=== PATIENT | female | born 1975 | race Two or more races ===

== ENCOUNTER → 2019-08-09 | Outpatient (CLI) | payer OTHER ==
--- NOTE | 2019-08-09 11:48 | RAD ---
UPPER EXT JOINT WO CONT LEFT dated 08/09/2019 10:30 AM Indication: Chronic left shoulder pain , limited range of motion .. Comparison: No comparison is available. Technique: Routine multiplanar multisequence imaging performed. . Findings: There is intermediate T2 signal within the supraspinatus and infraspinatus portions of the rotator cuff. Articular surface partial tearing of the anterior supraspinatus footplate extends about 60-70% thickness there is mild retraction of undersurface fibers. There is also probable articular surface partial tearing of the subscapularis with moderate to severe thinning of the cuff substance. No definite full-thickness tear or cuff retraction. Mild hypertrophic change of the AC joint. Mild undersurface spurring of the distal clavicle and acromion. Trace amount of subacromial/subdeltoid bursal fluid. Acromion type II morphology. Mild increased signal within the substance of the long head biceps tendon proximally. Extra articular portion courses within the bicipital groove. Biceps anchor intact. Glenoid labrum is grossly intact. No apparent labral tear or para labral cyst. No glenohumeral joint effusion or loose body. IMPRESSION: 1. Moderate rotator cuff tendinopathy with moderate grade articular surface partial tear of the supraspinatus-subscapularis junction. No definite full-thickness tear or cuff retraction. 2. Mild AC joint arthropathy with undersurface spurring. 3. Mild biceps tendinosis. 4. No apparent labral tear. Electronically signed by: Hudson Ramos MD (08/09/2019 11:46 AM) [id number]
== END | disposition home or self-care (01) ==
LOC: MRI 09:46 → MERGE 09:46
PROVIDERS: ATTEND Family Medicine
DX: M75.102 Unspecified rotator cuff tear or rupture of left shoulder, not specified as traumatic (principal); M12.812 Other specific arthropathies, not elsewhere classified, left shoulder; M75.82 Other shoulder lesions, left shoulder; G89.29 Other chronic pain
CPT/HCPCS: 73221